=== PATIENT | female | born 1985 | race Caucasian/White ===

== ENCOUNTER 2023-05-21 21:36 | Emergency (ER) | payer MEDICARE, OTHER ==
[~2023-05-21] VITALS: Ht 165.1 cm; Wt 163.3 kg
[2023-05-21 21:37] VITALS: BP_SYST 125; PULSE 90; RESP 16; TEMP 97.4; O2SAT 98
[2023-05-21] MEDS ORDERED: VIS25 PO (23:24)
[2023-05-21 23:44] VITALS: BP_SYST 125; PULSE 76; RESP 20; TEMP 98; O2SAT 97
== END 2023-05-21 23:45 | disposition home or self-care (01) ==
LOC: SED 21:36
DX: R00.2 Palpitations (principal); Z79.899 Other long term (current) drug therapy
CPT/HCPCS: 99283